=== PATIENT | female | born 1930 | race Caucasian/White ===

== ENCOUNTER → 2016-03-25 | Outpatient (CLI) | payer OTHER, BC ==
[~2016-03-25] MED LIST: ACIDOPHILUS PO; ASPIRIN ADULT L81 M1 PO; B COMPLE1 PO; FISH OIL PO; GLUCOSAMINE500 M1 PO; HYDROCHLOROTHIA25 MG PO; METOPROLOL SUCC25 MG PO; MULTIVITAMIN1 TAB PO; PROBIOTIC PO; VITAMIN B-125000 MCG SL; VITAMIN C TR500 M1 PO; VITAMIN D-31000 UNIT PO; [UNRECOGNIZED DRUG - OTHER] PO
--- NOTE | 2016-03-25 15:30 | DIAGNOSTIC IMAGING REPORT ---
PROCEDURE: MR BRAIN W/WO CONTRAST INDICATION: RIGHT PERIPHERAL VERTIGO WITH DIZZINESS TECHNIQUE: Multiplanar multisequence MRI imaging of the brain without contrast. Post administration of 15 ml ProHance gadolinium based IV contrast, three plane T1 fat sat sequences were obtained. COMPARISON: MRI of the brain dated 01/10/2008 FINDINGS: Scattered areas of punctate foci of abnormal signal are seen in the periventricular white matter and basal ganglia. This pattern is not consistent with small-vessel ischemic disease. Brain and ventricles otherwise normal there is no evidence of acute process the diffusion imaging. The internal auditory canals are normal. Normal signal in the visible bones. The sinuses are normally aerated. Visible extracranial soft tissues including the orbits are normal. IMPRESSION: 1. Moderate periventricular small-vessel ischemic disease. 2. No abnormal enhancement. No acute process.
== END ==
LOC: LAB SRH 11:41 → MRI SRH 11:41
DX: I67.82 Cerebral ischemia (principal)
CPT/HCPCS: 90074; 91631; 92560

== ENCOUNTER 2016-04-15 06:45 | Emergency (ER) | payer OTHER, BC ==
--- NOTE | 2016-04-15 09:36 | DIAGNOSTIC IMAGING REPORT ---
PROCEDURE: XR CHEST 1 VIEW INDICATION: WEAKNESS TECHNIQUE: Portable AP view 08:22 a.m. COMPARISON: None. FINDINGS: Lungs are clear. Mild cardiomegaly. Mediastinum and pulmonary vessels are normal. Degenerative changes of the AC and right glenohumeral joints. IMPRESSION: 1. No acute changes 2. Mild cardiomegaly
--- NOTE | 2016-04-15 10:08 | ED ORDER SUMMARY ---
..... Patient: MAGGIE ESQUIVEL OrderSheet [facility] VisitID: [id number] [place] [address] 85y, F Registration Date/Time: 04/15/2016 ORDER SHEET Weight: 70.3 kg (stated) Allergies: Neosporin GENERAL ORDERS: Chest 1V Urgent (08:04/15/2016 Joe HUSSEIN) (Ack 8:19 Deisi) (8:40 Rona R.N.) Superintendent Operating (Continuous) (08:04/15/2016 Joe HUSSEIN) (8:20 Rona R.N.) Vitals - Orthostatic (perform these before starting IV fluids please) (:04/15/2016 Joe HUSSEIN) (8:20 Rona R.N.) CBC w Diff Urgent (08:04/15/2016 Joe HUSSEIN) (Ack 8:19 Deisi) (8:40 Rona R.N.) CMP Urgent (08:04/15/2016 Joe HUSSEIN) (Ack 8:19 Deisi) (8:40 Rona R.N.) UA-Culture if indicated Urgent (:04/15/2016 Joe HUSSEIN) (Ack 8:19 Deisi) Amylase Urgent (:04/15/2016 Joe HUSSEIN) (Ack 8:19 Deisi) (8:40 Rona R.N.) Lipase Urgent (:04/15/2016 Joe HUSSEIN) (Ack 8:19 Deisi) (8:40 Rona R.N.) CPK Urgent (08:04/15/2016 Joe HUSSEIN) (Ack 8:19 Deisi) (8:40 Rona R.N.) Troponin-I Urgent (:04/15/2016 Joe HUSSEIN) (Ack 8:19 Deisi) (8:40 Rona R.N.) EKG - ER Stat (08:04/15/2016 Joe HUSSEIN) (8:26 Rona R.N.) MEDICATION ORDERS: KCl PO 20 meq (NOW) (10:05 04/15/2016 Noemi HUSSEIN) (Ack 10:10 Rona R.N.) (10:17 Rona R.N.) IV FLUIDS: IV NS : initial bolus 250 mL (1000 mL/hr), then 100 mL/hr for 4h (NOW); Urgent (08:12 04/15/2016 Joe HUSSEIN) (Ack 8:15 Rnoa R.N.) (8:37 Rona R.N.) ORDER SHEET NOTES: [Electronically signed by Evan Augustine R.N. (18:54 04/15/2016)] [Electronically signed by Randa Mena MD (03:33 04/19/2016)] [Electronically locked/signed by Evan Augustine R.N. (18:54 04/15/2016)]
--- NOTE | 2016-04-15 10:08 | ED CLINICAL REPORT ---
Clinical Report - Physicians/Mid Levels [facility] [address] [place] [address] 04/15/2016 6:45 Patient: MAGGIE ESQUIVEL Time Seen: 07:02. Arrived- By ambulance. Historian- patient and EMS personnel. HISTORY OF PRESENT ILLNESS Chief Complaint: DIZZINESS. BLOOD PRESSURE ELEVATED. At its maximum, severity described as moderate. When seen in the E.D., severity described as mild. Modifying factors. Not worsened by anything. Not relieved by anything. This started today and is still present. It was abrupt in onset. No loss of appetite, weight loss, headache, visual disturbance or muscle aches. She has had severe fatigue and weakness. Denies sleep problem. No decreased urine output. (Patient reports that she has had long-standing issues with imbalance. She is followed by a Dr. Duran for this. She is undergoing physical therapy for this. This morning she had a bout of dizziness that seemed worse when she tried to lay her head back. This made her feel anxious She checked her blood pressure and it was markedly elevated.). Similar symptoms previously: Recent medical care: The patient was seen recently by a health care provider. REVIEW OF SYSTEMS No chills, fever, sweats, decreased vision or double vision. No hearing loss, tinnitus, nasal congestion, runny nose or calf pain. No chest pain, cough, difficulty breathing, pedal edema or palpitations. No abdominal pain, constipation, diarrhea or urinary frequency or urinary problems. No hematuria, back pain, neck pain, alteration in mental status or difficulty with urination. The patient has had severe fatigue. She has had nausea (she had nausea at home when she was feeling dizzy. This persisted throughout the ambulance ride to the hospital.). She has had mild vomiting (She vomited one time in the ambulance. She attributed this to the motion of the vehicle.). The vomiting has occurred only once. No coffee-grounds emesis, frankly bloody emesis or unusually dark emesis. She has had new onset of generalized weakness, (severe). She said that she had an MRI done recently to rule out an acoustic neuroma and that this was normal. 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 All systems otherwise negative, except as recorded above. PAST HISTORY Problems: LNMP - Last Normal Menstrual Period. Hypertension. Medications: Hydrochlorothiazide Oral. Metoprolol Tartrate Oral. Allergies: Neosporin. SOCIAL HISTORY Never smoker. Regular alcohol use; consumes one glass of wine daily. ADDITIONAL NOTES The nursing notes have been reviewed. PHYSICAL EXAM Vital Signs: 04/15/2016 06:50 BP: 195/65. HR: 70. RR: 16. O2 saturation: 99%. Have been reviewed. Appearance: Alert. Eyes: Pupils equal, round and reactive to light. ENT: Pharynx normal. Neck: Normal inspection. Neck supple. CVS: Normal heart rate and rhythm. Heart sounds normal. Respiratory: No respiratory distress. Breath sounds normal. Abdomen: No visible injury. Soft and nontender. Bowel sounds normal. No organomegaly. No mass. Back: Normal inspection. Skin: Skin warm and dry. Normal skin color. Normal skin turgor. Extremities: Extremities exhibit normal ROM. No calf tenderness. No lower extremity edema. Neuro: Oriented X 3. No motor deficit. No sensory deficit. LABS, X-RAYS, AND EKG EKG: No acute ischemia. Rate: 68. Normal P waves. Normal QRS complex. LVH. Normal axis. Normal QT and QTc. Non-specific ST segment / T wave abnormalities. Changes present when compared to prior EKG. (03 Feb 2015). The study has been interpreted contemporaneously by me. The study has been independently viewed by me. The EKG appears to be a good tracing. I agree with and confirm the computer reading of the EKG. Rhythm Strip #1: Time: (0910). Rate= 61. Normal sinus rhythm. Regular rhythm. Narrow QRS complexes. No ectopy. Conduction normal. Normal ST segments and T waves. The study was interpreted by me. Chest X-ray: No acute disease. Normal lung markings present. Normal heart size. Mediastinum normal. Great vessels normal. Soft tissues normal. No infiltrate. No fracture. No bony lesion present. Views: AP (portable). Technique: good. The X-rays were independently viewed by me, interpreted by the radiologist and contemporaneously by me and discussed with the radiologist. Prior films were not available for comparison. Laboratory Tests: CBC w Diff: (MICHAEL: 04/15/2016 07:00) ( MsgRcvd 04/15/2016 08:21) Final results Test Result Flag Units (Reference) WHITE BLOOD COUNT 11.4 K/uL (4.5-11.5) RED BLOOD COUNT 4.23 M/uL (4.00-5.20) HEMOGLOBIN 14.3 gm/dL (12.0-16.0) HEMATOCRIT 42.3 % (36.0-46.0) MEAN CELL VOLUME 100 fL (80-100) MEAN CORPUSCULAR HGB 34 pg (26-34) MEAN CORPUSCULAR HGB CONC 34 g/dL (31-37) RED CELL DISTRIBUTION WIDTH 12.6 % (11.6-14.8) PLATELET COUNT 246 K/uL (150-400) NEUTROPHIL % 82.7 H % (50-75) LYMPH % 9.7 L % (25-40) MONO % 7.1 % (3-14) EOSINOPHIL % 0.2 % (0-4) BASOPHIL % 0.3 % (0-2) CMP: (MICHAEL: 04/15/2016 07:00) ( MsgRcvd 04/15/2016 08:34) Final results Test Result Flag Units (Reference) GLUCOSE 157 H mg/dL (70-110) BUN 29 H mg/dL (7-18) CREATININE 0.7 mg/dL (0.6-1.3) Estimated GFR >60 mL/min Estimated GFR- >60 mL/min Note: Persistent reduction over 3 months in eGFR<60 mL/min/1.73 m2 defines CKD. Patients with eGFR values>=60 mL/min/1.73 m2 may also have CKD if evidence ofpersistent proteinuria. Additional information may be foundat www.kidney.org. SODIUM 134 L mmol/L (136-145) POTASSIUM 3.1 L mmol/L (3.5-5.1) CHLORIDE 96 L mmol/L (98-107) CARBON DIOXIDE 24 mmol/L (21-32) CALCIUM 9.3 mg/dL (8.5-10.1) TOTAL PROTEIN 7.6 g/dL (6.4-8.2) ALBUMIN 3.8 g/dL (3.3-5.0) BILIRUBIN, TOTAL 0.4 mg/dL (0.0-1.0) ALKALINE PHOSPHATASE 78 U/L (46-116) AST (SGOT) 21 U/L (15-37) ALT (SGPT) 33 U/L (12-78) LIPASE 164 U/L (73-393) AMYLASE 30 U/L (25-115) CPK 143 U/L (24-260) TROPONIN I <0.05 L ng/mL (0.00-1.5) TROPONIN REFERENCE RANGE:<0.1 NEGATIVE0.1-1.5 INDETERMINANT>1.5 POSITIVE . Pulse Oximetry: 04/15/2016 06:50 O2 saturation: 99%. (FIO2 - room air). Interpretation: normal. PROGRESS AND PROCEDURES Course of Care: Pt was worked up for her sx, and work-up was unremarkable. Pt was well-appearing, and did not display sx of a CVA. Pt was signed out to me by the off-going physician, pending remainder of work-up. I did speak with her and her neighbors, who were visiting, for quite some time, regarding her sx and what to do from here. Pt reported feeling well now, and was ambulatory without difficulty. Patient is stable. Patient and friend counseled in person regarding the patient's stable condition, test results, diagnosis and need for follow-up. Concerns were addressed. Old medical records reviewed. Disposition: Discharged. Condition: stable and improved. CLINICAL IMPRESSION Acute dizziness Anxiety reaction. Essential hypertension. Hypokalemia INSTRUCTIONS (Your tests all look good, and your blood pressure has improved.). Warnings: GENERAL WARNINGS: Return or contact your physician immediately if your condition worsens or changes unexpectedly, if not improving as expected, or if other problems arise. Your Current Medications: CONTINUE TAKING THE FOLLOWING MEDICATIONS: Hydrochlorothiazide Oral. Metoprolol Tartrate Oral. Prescription Medications: K-Dur 20 mEq: take 1 orally every 12 hours. No refills. Substitution is permissible. (for 7 days, dispense # 14) Follow-up: Follow up with your doctor. Call for the next available appointment. Reason for referral: Follow up ER visit. Understanding of the discharge instructions verbalized by patient. (Electronically signed by Randa Mena MD 04/19/2016 3:33)
--- NOTE | 2016-04-15 10:08 | ED ORDER SUMMARY ---
..... Patient: MAGGIE ESQUIVEL OrderSheet [facility] VisitID: [id number] [place] [address] 85y, F Registration Date/Time: 04/15/2016 ORDER SHEET Weight: 70.3 kg (stated) Allergies: Neosporin GENERAL ORDERS: Chest 1V Urgent (08:04/15/2016 Joe HUSSEIN) (Ack 8:19 Deisi) (8:40 Rona R.N.) Fuel Conversion Technician (Continuous) (08:04/15/2016 Joe HUSSEIN) (8:20 Rona R.N.) Vitals - Orthostatic (perform these before starting IV fluids please) (:04/15/2016 Joe HUSSEIN) (8:20 Rona R.N.) CBC w Diff Urgent (08:04/15/2016 Joe HUSSEIN) (Ack 8:19 Deisi) (8:40 Rona R.N.) CMP Urgent (08:04/15/2016 Joe HUSSEIN) (Ack 8:19 Deisi) (8:40 Rona R.N.) UA-Culture if indicated Urgent (:04/15/2016 Joe HUSSEIN) (Ack 8:19 Deisi) Amylase Urgent (:04/15/2016 Joe HUSSEIN) (Ack 8:19 Deisi) (8:40 Rona R.N.) Lipase Urgent (:04/15/2016 Joe HUSSEIN) (Ack 8:19 Deisi) (8:40 Rona R.N.) CPK Urgent (08:04/15/2016 Joe HUSSEIN) (Ack 8:19 Deisi) (8:40 Rona R.N.) Troponin-I Urgent (:04/15/2016 Joe HUSSEIN) (Ack 8:19 Deisi) (8:40 Rona R.N.) EKG - ER Stat (08:04/15/2016 Joe HUSSEIN) (8:26 Rona R.N.) MEDICATION ORDERS: KCl PO 20 meq (NOW) (10:05 04/15/2016 Noemi HUSSEIN) (Ack 10:10 Rona R.N.) (10:17 Rona R.N.) IV FLUIDS: IV NS : initial bolus 250 mL (1000 mL/hr), then 100 mL/hr for 4h (NOW); Urgent (08:12 04/15/2016 Joe HUSSEIN) (Ack 8:15 Rona R.N.) (8:37 Rona R.N.) ORDER SHEET NOTES: [Electronically signed by Evan Augustine R.N. (18:54 04/15/2016)] [Electronically signed by Randa Mena MD (03:33 04/19/2016)] [Electronically locked/signed by Evan Augustine R.N. (18:54 04/15/2016)]
--- NOTE | 2016-04-15 10:08 | ED NURSING NOTES ---
Clinical Report - Nurses [facility] [address] [place] [address] 04/15/2016 6:45 [id number] T[facility] 0650 AM. Acuity: LEVEL 3. Chief Complaint: DIZZINESS and WEAKNESS. Alert. No acute distress. MOHINI COMA SCORE: Mohini Coma Scale: 15- eyes open spontaneously (4); best verbal response- oriented x 4 (5); best motor response- obeys commands (6). --06:56 Santiago Glover R.N. 06:50 04/15/16. BP: 195/65. HR: 70. RR: 16. O2 saturation: 99%. --06:56 Santiago Glover R.N. Weight: 70.3 kg stated. Height/Length: 65 inches Per Patient. BMI: 25.8. --06:53 Santiago Glover R.N. Medications Metoprolol Tartrate Oral. --06:54 Santiago Glover R.N. Hydrochlorothiazide Oral. --06:54 Santiago Glover R.N. Allergies Neosporin. --06:55 Santiago Glover R.N. History Arrived by private vehicle. Historian: patient. Accompanied by family. This started just prior to arrival. Patient was reported to be last known well (2230 PM). ( Patient presents to the ED with symptoms of weakness, dizziness, nausea and vomiting. Patient states that she went to bed last night feeling fine and woke up this morning with her symptoms.). Treatment ASSISTANT PROFESSOR OF FORESTRY: Took aspirin. PAST MEDICAL HX: Hypertension. Immunizations: up-to-date. SOCIAL HX: Never smoker. Regular alcohol use; consumes one glass of wine daily. History of drug use. (no). NUTRITIONAL RISK ASSESSMENT: The nutritional risk assessment revealed no deficiencies. FUNCTIONAL ASSESSMENT: Functional assessment: no impairments noted. LEARNING NEEDS ASSESSMENT: The learning needs assessment revealed no barriers. FALL RISK ASSESSMENT: Fall risk assessment completed. Risk factors identified include nausea, dizziness, vertigo and patient medications and age greater than 65 years. Fall interventions initiated. Patient placed on stretcher. Side rails up. Brakes on Bed in low position. Patient visible from nurses' station and identified as a fall risk by ID band. SKIN INTEGRITY ASSESSMENT: Skin integrity risk assessment completed. No skin integrity risk identified. --06:56 Santiago Glover R.N. PROBLEMS: Tetanus Status. LNMP - Last Normal Menstrual Period. Hypertension. --06:55 Santiago Glover R.N. ADDITIONAL SURGERIES: Back Surgery. Cholecystectomy. Hysterectomy. --06:55 Santiago Glover R.N. Interventions ID band on patient. To treatment room. --06:56 Santiago Glover R.N. PHYSICAL ASSESSMENT To room via stretcher. GENERAL / NEURO / PSYCH: Oriented X 4. Appears in no acute distress. Alert. Speech within normal limits. ( nystamus, dizziness). HEENT: No facial asymmetry noted. Pupils equal, round and reactive to light. Nystagmus. RESPIRATORY: Breath sounds within normal limits. Respirations not labored. CVS: Normal sinus rhythm noted. Capillary refill less than 2 seconds. GI / : Abdomen soft and nontender. SKIN: Skin is warm and dry. --06:56 Santiago Glover R.N. NURSING PROGRESS NOTES 06:57 04/15/2016 Site #1 started via IV in the right antecubital space with an 20g angiocath; one attempt. Blood drawn: rainbow set. Labeled in the presence of the patient and sent to the lab. Saline lock flushed with 10 mL saline. --06:57 Santiago Glover R.N. Reassurance given. Call light placed in reach. Side rails up x 2. Bed placed in lowest position. Brakes of bed on. --06:57 Santiago Glover R.N. Care transferred and report given. --07:12 Santiago Glover R.N. 07:34 04/15/16. BP: 172/60. HR: 74. RR: 16. O2 saturation: 93% on room air. Pain level now: 0/10. --07:35 Debbie Osorio R.N. 07:35 04/15/16. The patient is resting quietly. Overall patient status is the same- she states feels the same. GENERAL / NEURO / PSYCH: Patient is calm and cooperative. Alert. Oriented X 4. RESPIRATORY: No respiratory distress. SKIN: Skin is warm and dry. --07:35 Debbie Osorio R.N. 07:30 04/15/16. BP: 164/58. --07:56 Leann Hayes R.N. ( Report from BEVERLEY Ortega. Pt. resting quietly.). --07:56 Leann Hayes R.N. 08:28 lying 133/77, pulse 63; sitting 159/61, pulse 69; standing 142/77 pulse74; stated "I just feel weak", c/o "dizzy" feeling when she sat down. --08:30 Debbie Osorio R.N. 08:37 04/15/2016 Started bag #1 1000 mL IV Fluids IV NS (Saline); at 1000 mL/hr over 15 minute(s) via site #1 via IV pump. --08:37 Debbie Osorio R.N. 10:17 04/15/2016 KCL (Potassium Chloride ER) PO Tablets 20 meq given. Allergies verified and confirmed 5 rights. --10:17 Debbie Osorio R.N. 10:19 04/15/16. BP: 146/52. HR: 64. --12:21 Debbie Osorio R.N. 12:24 04/15/16. BP: 162/66. HR: 64. RR: 18. O2 saturation: 96%. --12:25 Evan Augustine R.N. 12:24 04/15/16. BP: 162/66. HR: 64. RR: 18. O2 saturation: 96%. 11:00 04/15/16. BP: 152/58. HR: 71. RR: 18. O2 saturation: 95%. 10:19 04/15/16. BP: 146/52. HR: 64. 09:45 04/15/16. BP: 146/52. HR: 66. RR: 18. O2 saturation: 93%. 09:00 04/15/16. BP: 160/57. HR: 65. RR: 18. O2 saturation: 93%. --12:29 Evan Augustine R.N. DISPOSITION / DISCHARGE 12:24 04/15/16. BP: 162/66. HR: 64. RR: 18. O2 saturation: 96%. --12:29 Evan Augustine R.N. Departure time: 12:Apr 15 2016. Condition at departure: improved. No learning barriers present. Discharge instructions provided and reviewed with the patient and family. Reviewed warnings. Reviewed medication(s). Treatments reviewed. Reviewed referrals. Patient and family verbalized understanding. Written instructions provided in Maltese. The patient was discharged home and accompanied by family. She left the Emergency Department in a wheelchair and via private vehicle. Family member driving. --12:29 Evan Augustine R.N. 12:00 04/15/2016 Site #1 removed upon discharge. Catheter intact. Pressure dressing applied. --12:30 Evan Augustine R.N. 12:00 04/15/2016 IV Fluids IV NS Discontinued: bag #1 infused upon discharge. Total amount infused: 800 mL. IV patency established. IV site checked: no pain, redness, or swelling. IV flushed thoroughly. --12:30 Evan Augustine R.N. Locked/Released at 04/15/2016 18:54 by Evan Augustine R.N.
--- NOTE | 2016-04-19 03:33 | ED MAR SUMMARY ---
..... Medication Administration Record [facility] [address] [place] [address] Patient: MAGGIE ESQUIVEL Visit ID: [id number] 85y, F Weight: 70.3 kg Height/Length: 65 in BMI: 25.8 ALLERGIES: Neosporin Start 08:37 04/15/2016 Debbie Osorio RRoxie, Stop 12:00 04/15/2016 Evan Augustine R.N. Medication Administered: IV NS (SALINE), Dose: IV Fluids over 15 minute(s), Rate: 1000 mL/hr, Dispensed: 1000 mL bag, Site: #1 right AC. Medication Ordered: IV NS : initial bolus 250 mL (1000 mL/hr), then 100 mL/hr for 4h (NOW); Urgent. Given 10:17 04/15/2016 Debbie Osorio RRoxie Medication Administered: KCL [PO] (POTASSIUM CHLORIDE ER), Dose: 20 meq Tablets PO. Medication Ordered: KCl PO 20 meq (NOW).
--- NOTE | 2016-04-19 03:33 | ED MAR SUMMARY ---
..... Medication Administration Record [facility] [address] [place] [address] Patient: MAGGIE ESQUIVEL Visit ID: [id number] 85y, F Weight: 70.3 kg Height/Length: 65 in BMI: 25.8 ALLERGIES: Neosporin Start 08:37 04/15/2016 Debbie Osorio RRoxie, Stop 12:00 04/15/2016 Evan Augustine R.N. Medication Administered: IV NS (SALINE), Dose: IV Fluids over 15 minute(s), Rate: 1000 mL/hr, Dispensed: 1000 mL bag, Site: #1 right AC. Medication Ordered: IV NS : initial bolus 250 mL (1000 mL/hr), then 100 mL/hr for 4h (NOW); Urgent. Given 10:17 04/15/2016 Debbie Osorio RRoxie Medication Administered: KCL [PO] (POTASSIUM CHLORIDE ER), Dose: 20 meq Tablets PO. Medication Ordered: KCl PO 20 meq (NOW).
--- NOTE | 2016-04-19 03:33 | ED DISCHARGE INSTRUCTIONS ---
Patient: MAGGIE ESQUIVEL General Instructions [facility] VisitID: [id number] [place] [address] 85y, F Registration Date/Time: 04/15/2016 Acute dizziness Anxiety reaction. Essential hypertension. Hypokalemia INSTRUCTIONS (Your tests all look good, and your blood pressure has improved.). Warnings: GENERAL WARNINGS: Return or contact your physician immediately if your condition worsens or changes unexpectedly, if not improving as expected, or if other problems arise. Your Current Medications: CONTINUE TAKING THE FOLLOWING MEDICATIONS: Hydrochlorothiazide Oral. Metoprolol Tartrate Oral. Prescription Medications: K-Dur 20 mEq: take 1 orally every 12 hours. No refills. Substitution is permissible. (for 7 days, dispense # 14) Follow-up: Follow up with your doctor. Call for the next available appointment. Reason for referral: Follow up ER visit. Understanding of the discharge instructions verbalized by patient. ADDITIONAL INFORMATION Stress Reaction Anxiety is the feeling we all get when we think something bad might happen. It is a normal response to stress and usually causes only a mild reaction. When anxiety becomes more severe, emotions may interfere with daily life. In some cases, you may not even be aware of what it is youre anxious about! During an anxiety reaction, you may feel like you are helpless, nervous, depressed or irritable. Your body may show signs of anxiety in many ways. You may experience dry mouth, shakiness, dizziness, weakness, trouble breathing, chest pressure, headache, nausea, diarrhea, tiredness, inability to sleep or sexual problems. Home Care: 1) Try to locate the sources of stress in your life. They may not be obvious! These may include: -- Daily hassles of life which pile up (traffic jams, missed appointments, car troubles, etc.) -- Major life changes, both good (new baby, job promotion) and bad (loss of job, loss of loved one) -- Overload: feeling that you have too many responsibilities and can't take care of all of them at once -- Feeling helpless, feeling that your problems are beyond what youre able to solve 2) Notice how your body reacts to stress. Learn to listen to your body signals. This will help you take action before the stress becomes severe. 3) When you can, do something about the source of your stress. (Avoid hassles, limit the amount of change that happens in your life at one time and take a break when you feel overloaded). 4) Unfortunately, many stressful situations cannot be avoided. It is necessary to learn HOW TO MANAGE STRESS better. There are many proven methods that will reduce your anxiety. These include simple things like exercise, good nutrition and adequate rest. Also, there are certain techniques that are helpful: relaxation and breathing exercises, visualization, biofeedback and meditation. For more information about this, consult your doctor or go to a local bookstore and review the many books and tapes available on this subject. Follow Up If you feel that your anxiety is not responding to self-help measures, contact your doctor or make an appointment with a counselor. Get Prompt Medical Attention if any of the following occur: -- Your symptoms get worse -- Chest pain or trouble breathing -- Severe headache not relieved by rest and mild pain reliever -- Rapid or irregular heartbeat, fainting Dizziness [Uncertain Cause] Dizziness is a common symptom sometimes described as "lightheadedness" or feeling like you are going to faint. If it lasts for only a few seconds and is related to changes in position (such as getting up after lying or sitting for a long time), it is usually not a sign of anything serious. Dizziness that lasts for minutes to hours, or comes on for no apparent reason, may be a sign of a more serious problem (such as dehydration, a medicine reaction, disease of the heart or brain). Today's exam did not show an exact cause for your dizzy spell . Sometimes additional tests are required before a cause can be found. Therefore, it is important to follow up with your doctor if your symptoms continue. Home Care: 1) If a dizzy spell occurs and lasts more than a few seconds, lie down until it passes. If you are lying down, then you cannot hurt yourself by falling if you do faint. 2) Do not drive or operate dangerous equipment until the dizzy spells have stopped for at least 48 hours. 3) If dizzy spells occur with sudden standing, this may be a sign of mild dehydration. Drink extra fluids over the next few days. 4) If you recently started a new medicine or if you had the dose of a current medicine increased (especially blood pressure medicine), talk with the prescribing doctor about your symptoms. Dose adjustments may be needed. Follow Up with your doctor for further evaluation within the next seven days, if your symptoms continue. Get Prompt Medical Attention if any of the following occur: -- Worsening of your symptoms -- Fainting, headache or seizure -- Repeated vomiting -- Feeling like you or the room is spinning -- Chest, arm, neck, back or jaw pain -- Palpitations (the sense that your heart is fluttering or beating fast or hard) -- Shortness of breath -- Blood in vomit or stool (black or red color) -- Weakness of an arm or leg or one side of the face -- Difficulty with speech or vision High Blood Pressure --Established High Blood Pressure (Hypertension) is a chronic disease. The cause is unknown in most cases. It can usually be controlled with lifestyle changes and/or medicines. Symptoms of high blood pressure may include headache, dizziness, visual changes, chest pain and shortness of breath. Sometimes it causes no symptoms at all. However, even if there are no symptoms, untreated high blood pressure increases the risk of heart attack, also known as acute myocardial infarction, or AMI, and stroke. It is a serious health risk and should not be ignored. A normal blood pressure is 120/80 or less. The first (top) number is the "systolic" pressure. The second (bottom) number is the "diastolic" pressure. Hypertension exists when either the top number is 140 or higher, OR the bottom number is 90 or higher on repeated measurements. Home Care: All patients with high blood pressure should do the following to lower their pressure. If you are on medicines, then these methods may reduce or eliminate your need for medicines in the future. Begin a weight loss program if you are overweight. Reduce your salt intake. Avoid high salt foods (olives, pickles, smoked meats, salted potato chips, etc.). Do not add salt to your food at the table. Use only small amounts of salt when cooking. Begin an exercise program. Discuss with your doctor what type of exercise program would be best for you. It doesn't have to be difficult. Even brisk walking for 20 minutes three times a week is a good form of exercise. Avoid medicines which contain heart stimulants. This includes many cold and sinus decongestant pills and sprays as well as diet pills. Check the warnings about hypertension on the label. Stimulants such as amphetamine or cocaine could be lethal for someone with hypertension. Never take these. Limit your caffeine intake or switch to caffeine-free products. Stop smoking. If you are a long-time smoker, this can be hard. Enroll in a stop-smoking program to improve your chance of success. Learning how to handle stress better is an important part of any program to lower blood pressure. Learn about relaxation methods such as meditation, yoga or biofeedback. If medicines were prescribed, take them exactly as directed. Missing doses may cause your blood pressure get out of control. Consider buying an automatic blood pressure machine (available at most pharmacies). Use this to monitor your blood pressure at home and report the results to your doctor. Follow Up: Regular visits to your own physician for blood pressure checks and medicine adjustment is an important part of your care. Make a follow-up appointment as directed by our staff. Get Prompt Medical Attention if any of the following occur: Chest pain or shortness of breath Severe headache Throbbing or rushing sound in the ears Nosebleed Sudden severe abdominal pain Extreme drowsiness, confusion or fainting Dizziness or vertigo (dizziness with spinning sensation) Weakness of an arm or leg or one side of the face Difficulty with speech or vision Hypokalemia Hypokalemia means a low level of potassium in the blood. This most often occurs in patients who take diuretics (water pills). It can also occur due to severe vomiting or diarrhea. A mild case usually causes no symptoms. It is only found with blood testing. More severe potassium loss causes generalized weakness, muscle or abdominal cramping, heart palpitations (rapid or irregular heartbeats) and low blood pressure. Home Care: 1) Take any potassium supplements prescribed. 2) Eat foods rich in potassium. The highest amount is found in artichoke, baked potatoes, spinach, cantaloupe, honeydew melon, cod, halibut, salmon, and scallops. White, red, or love beans are also very good sources. A modest amount is found in orange juice, bananas, carrots, and tomato juice. 3) Certain types of diuretics (water pills), such as Lasix (furosemide), require that you take potassium supplements for as long as you take the diuretic pills. If you are taking a diuretic, discuss the need for potassium supplements with your doctor. Follow Up with your doctor for a repeat blood test within the next week or as advised by our staff. Get Prompt Medical Attention if any of the following occur: -- Increased weakness -- Feeling dizzy -- Irregular heartbeat, extra beats or very fast heart rate -- Fainting spell You have been given the following additional information: Anxiety Reaction Dizziness, Unk Cause Hypertension, Established Hypokalemia (Electronically signed by Randa Mena MD 04/19/2016 3:33)
--- NOTE | 2016-04-19 03:33 | ED MED RECONCILIATION SUMMARY ---
Patient: MAGGIE ESQUIVEL Medication Reconciliation Report [facility] VisitID: [id number] [address] [place] [address] 85y, F Registration Date/Time: 04/15/2016 Weight: 70.3 kg Height/Length: 65 in. BMI: 25.8 ALLERGIES: Neosporin The patient's Home Medications are listed below: CONTINUE TAKING THE FOLLOWING MEDICATIONS: Hydrochlorothiazide Oral Metoprolol Tartrate Oral The source(s) of the original Home Medication information: Not obtained. The following Medications were given to the patient in the Emergency Department: IV NS IV Fluids bolus 0, then 1000 mL/hr, administered: 04/15/2016 8:37:00 AM KCL [PO] PO 20 meq, administered: 04/15/2016 10:17:00 AM The following Medications were prescribed to the patient: K-Dur 20 mEq: take 1 orally every 12 hours. No refills. Substitution is permissible.(for 7 days, dispense # 14) -- Randa Mena MD
--- NOTE | 2016-04-19 03:33 | ED MED RECONCILIATION SUMMARY ---
Patient: MAGGIE ESQUIVEL Medication Reconciliation Report [facility] VisitID: [id number] [address] [place] [address] 85y, F Registration Date/Time: 04/15/2016 Weight: 70.3 kg Height/Length: 65 in. BMI: 25.8 ALLERGIES: Neosporin The patient's Home Medications are listed below: CONTINUE TAKING THE FOLLOWING MEDICATIONS: Hydrochlorothiazide Oral Metoprolol Tartrate Oral The source(s) of the original Home Medication information: Not obtained. The following Medications were given to the patient in the Emergency Department: IV NS IV Fluids bolus 0, then 1000 mL/hr, administered: 04/15/2016 8:37:00 AM KCL [PO] PO 20 meq, administered: 04/15/2016 10:17:00 AM The following Medications were prescribed to the patient: K-Dur 20 mEq: take 1 orally every 12 hours. No refills. Substitution is permissible.(for 7 days, dispense # 14) -- Randa Mena MD
== END 2016-04-15 12:15 | disposition home or self-care (01) ==
LOC: ED SRH 06:45
DX: R42 Dizziness and giddiness (principal); F41.1 Generalized anxiety disorder; I10 Essential (primary) hypertension; E87.6 Hypokalemia; Z79.899 Other long term (current) drug therapy; Z91.09 Other allergy status, other than to drugs and biological substances
CPT/HCPCS: 90004; 90100; 90616; 92235; 92530; 92610; 95059